=== PATIENT | female | born 1960 | race Caucasian/White ===

== ENCOUNTER 2024-04-06 10:27 | Inpatient (IN) | payer MEDICARE, OTHER ==
[~2024-04-06] VITALS: Ht 162.6 cm; Wt 67.3 kg
[2024-04-06 10:56] LABS: BASOPHILS % (AUTO) 0.7 % (0.0-2.0); EOSINOPHILS % (AUTO) 0.8 % (1.0-6.0); HEMATOCRIT 48.1 % (36-46); HEMOGLOBIN 16.5 g/dL (12.0-16.0); LYMPHOCYTES % (AUTO) 33.2 % (22.0-44.0); MEAN CORPUSCULAR HEMOGLOBIN 32.5 pg (26.0-34.0); MEAN CORPUSCULAR HGB CONC 34.3 G/dL (31.0-37.0); MEAN CORPUSCULAR VOLUME 95 fL (80-100); MONOCYTES # (AUTO) 0.8 K/uL (0.1-1.0); MONOCYTES % (AUTO) 9.3 % (2.0-9.0); PLATELET COUNT (AUTO) 257 K/uL (150-450); RED BLOOD CELL COUNT(AUTO) 5.08 MIL/uL (4.00-5.20); RED CELL DISTRIBUTION WIDTH 12.9 % (11.5-14.5); WHITE BLOOD COUNT (AUTO) 8.9 K/uL (4.5-11.0)
[2024-04-06 11:02] LABS: CALCIUM, TOTAL 9.7 mg/dL (8.8-10.5); CREATININE 0.95 mg/dL (0.60-1.30)
[2024-04-06 11:08] LABS: POTASSIUM 2.9 mmol/L (3.5-5.1)
[2024-04-06] MEDS: POTASSIUM CHLORIDE 20 MEQ ER TABLET PO ONE (11:53)
[2024-04-06] MEDS: POTASSIUM CHLORIDE 10% 40 MEQ/30 ML LIQUID UDCUP PO ONE ×2 (12:56→13:01)
[2024-04-06] MEDS: POTASSIUM CHL 10 MEQ/WATER 50 ML IV ONE (14:30)
[2024-04-06] MEDS: LORazepam 2 MG/ML VIAL IVP ONE (14:30)
[2024-04-06] MEDS ORDERED: MAGNESIUM SULFATE 2 GM/WATER 50 ML IV PRN (15:45)
[2024-04-06] MEDS ORDERED: MAGNESIUM HYDROXIDE SUSPENSION 30 ML UDCUP PO PRN (15:45)
[2024-04-06] MEDS ORDERED: HYDROCODONE/ACETAMINOPHEN 5-325 MG TABLET PO PRN (15:45)
[2024-04-06] MEDS ORDERED: MAGNESIUM OXIDE 400 MG TABLET PO PRN (15:45)
[2024-04-06] MEDS ORDERED: BISACODYL 10 MG RECTAL RECTAL SUPPOSITORY PR PRN (15:45)
[2024-04-06] MEDS ORDERED: ACETAMINOPHEN 325 MG TABLET PO PRN (15:45)
[2024-04-06] MEDS ORDERED: MORPHINE SULFATE 2 MG/ML SYRINGE IVP PRN (15:45)
[2024-04-06] MEDS ORDERED: MAGNESIUM SULFATE 4 GM/WATER 100 ML IV PRN (15:45)
[2024-04-06 16:39] LABS: ALBUMIN 3.8 g/dL (3.4-5.0)
[2024-04-06] MEDS: SODIUM CHLORIDE 0.9% 1,000 ML IV ONE (17:12)
[2024-04-06] MEDS: HEPARIN SODIUM,PORCINE 5,000 UNITS/ML VIAL SQ SCH (17:12)
[2024-04-06] MEDS ORDERED: SODIUM CHLORIDE 0.9% 250 ML IV ONE (17:29)
[2024-04-06] MEDS: POTASSIUM CHL 10 MEQ/WATER 50 ML IV PRN (17:35)
[2024-04-06 18:03] VITALS: PULSE 130; RESP 18
[2024-04-06 19:50] VITALS: BP 135/82; PULSE 99; RESP 18; TEMP 98
[2024-04-06] MEDS: DOCUSATE SODIUM 100 MG CAPSULE PO SCH (20:34)
[2024-04-06 23:42] VITALS: BP 153/95; PULSE 110; RESP 18; TEMP 98.4
[2024-04-07 04:21] VITALS: BP 146/85; PULSE 95; RESP 18; TEMP 98.1
[2024-04-07 06:12] LABS: BASOPHILS % (AUTO) 0.6 % (0.0-2.0); EOSINOPHILS % (AUTO) 0.6 % (1.0-6.0); HEMATOCRIT 43.7 % (36-46); HEMOGLOBIN 15.1 g/dL (12.0-16.0); LYMPHOCYTES # (AUTO) 2.3 K/uL (1.0-4.8); LYMPHOCYTES % (AUTO) 34.8 % (22.0-44.0); MEAN CORPUSCULAR HEMOGLOBIN 32.5 pg (26.0-34.0); MEAN CORPUSCULAR HGB CONC 34.5 G/dL (31.0-37.0); MEAN CORPUSCULAR VOLUME 94 fL (80-100); MONOCYTES # (AUTO) 0.5 K/uL (0.1-1.0); MONOCYTES % (AUTO) 7.9 % (2.0-9.0); NEUTROPHILS # (AUTO) 3.7 K/uL (1.8-7.7); NEUTROPHILS % (AUTO) 56.1 % (40.0-70.0); PLATELET COUNT (AUTO) 223 K/uL (150-450); RED BLOOD CELL COUNT(AUTO) 4.63 MIL/uL (4.00-5.20); WHITE BLOOD COUNT (AUTO) 6.6 K/uL (4.5-11.0)
[2024-04-07 06:19] LABS: ANION GAP 9 mmol/L (8-16); CALCIUM, TOTAL 9.1 mg/dL (8.8-10.5); CARBON DIOXIDE 25 mmol/L (22-29); CHLORIDE 109 mmol/L (98-107); CREATININE 0.78 mg/dL (0.60-1.30); GLOMERULAR FILTR. RATE CALC > 60 mL/min (>60); GLUCOSE,RANDOM 106 mg/dL (70-110); POTASSIUM 3.3 mmol/L (3.5-5.1); SODIUM SERUM 143 mmol/L (136-145); UREA NITROGEN, BLOOD 28 mg/dL (7-18)
[2024-04-07] MEDS: PANTOPRAZOLE SODIUM 40 MG DR TABLET PO SCH (08:00)
[2024-04-07 08:34] VITALS: BP 143/103; PULSE 94; RESP 18; TEMP 98.2
[2024-04-07] MEDS: POTASSIUM CHLORIDE 20 MEQ ER TABLET PO PRN (08:57)
[2024-04-07 13:03] LABS: APPEARANCE,URINE CLEAR (CLEAR); BILIRUBIN,URINE NEGATIVE (NEGATIVE); COLOR,URINE LIGHT YELLOW (YELLOW); GLUCOSE, URINE (UA) NEGATIVE (NEGATIVE); KETONES,URINE NEGATIVE (NEGATIVE); LEUKOCYTE ESTERASE ,URINE NEGATIVE (NEGATIVE); NITRATE,URINE NEGATIVE (NEGATIVE); OCCULT BLOOD,URINE NEGATIVE (NEGATIVE); PH,URINE 6.5 (5.0-8.0); PH,URINE DRUG SCREEN 6.5 (5.0-8.0); PROTEIN,URINE NEGATIVE (NEGATIVE); SPECIFIC GRAVITIY, URINE 1.025 (1.003-1.030); UROBILINOGEN,URINE <=1.0 mg/dL (<=1.0)
[2024-04-07 13:08] LABS: ALCOHOL, URINE DRUG SCREEN NEGATIVE (NEGATIVE); AMPHET/METH SCREEN,URINE NEGATIVE (NEGATIVE); BARBITURATE SCREEN, URINE NEGATIVE (NEGATIVE); BENZODIAZEPINES SCREEN,URINE NEGATIVE (NEGATIVE); CANNABINOID SCREEN,URINE POSITIVE (NEGATIVE); COCAINE SCREEN,URINE NEGATIVE (NEGATIVE); METHADONE SCREEN, URINE NEGATIVE (NEGATIVE); OPIATE SCREEN,URINE NEGATIVE (NEGATIVE); PHENCYCLIDINE SCREEN,URINE NEGATIVE (NEGATIVE)
[2024-04-07 16:00] VITALS: PULSE 87; RESP 18
[2024-04-07 19:50] VITALS: BP 134/96; PULSE 101; RESP 18; TEMP 98.4
[2024-04-08 00:10] VITALS: BP 141/97; PULSE 101; RESP 19; TEMP 98.4
[2024-04-08] MEDS: ONDANSETRON HCL 4 MG/2 ML VIAL IVP PRN (01:05)
[2024-04-08 05:18] VITALS: BP 139/81; PULSE 99; RESP 16; TEMP 98.1
[2024-04-08 07:13] LABS: BASOPHILS % (AUTO) 0.4 % (0.0-2.0); EOSINOPHILS % (AUTO) 0.5 % (1.0-6.0); HEMATOCRIT 43.9 % (36-46); HEMOGLOBIN 15.2 g/dL (12.0-16.0); LYMPHOCYTES # (AUTO) 2.4 K/uL (1.0-4.8); LYMPHOCYTES % (AUTO) 34.5 % (22.0-44.0); MEAN CORPUSCULAR HEMOGLOBIN 32.5 pg (26.0-34.0); MEAN CORPUSCULAR HGB CONC 34.7 G/dL (31.0-37.0); MEAN CORPUSCULAR VOLUME 94 fL (80-100); MONOCYTES # (AUTO) 0.5 K/uL (0.1-1.0); MONOCYTES % (AUTO) 7.2 % (2.0-9.0); NEUTROPHILS % (AUTO) 57.4 % (40.0-70.0); PLATELET COUNT (AUTO) 218 K/uL (150-450); RED BLOOD CELL COUNT(AUTO) 4.69 MIL/uL (4.00-5.20); RED CELL DISTRIBUTION WIDTH 12.9 % (11.5-14.5)
[2024-04-08 07:23] LABS: ANION GAP 12 mmol/L (8-16); CALCIUM, TOTAL 9.2 mg/dL (8.8-10.5); CARBON DIOXIDE 24 mmol/L (22-29); CHLORIDE 105 mmol/L (98-107); CREATININE 0.71 mg/dL (0.60-1.30); GLOMERULAR FILTR. RATE CALC > 60 mL/min (>60); GLUCOSE,RANDOM 87 mg/dL (70-110); POTASSIUM 3.3 mmol/L (3.5-5.1); SODIUM SERUM 141 mmol/L (136-145); UREA NITROGEN, BLOOD 17 mg/dL (7-18)
[2024-04-08 08:01] VITALS: BP 134/85; PULSE 97; RESP 18; TEMP 98.2
[2024-04-08 12:27] VITALS: BP 143/98; PULSE 91; RESP 18; TEMP 97.7
[2024-04-08 15:32] VITALS: BP 137/106; PULSE 119; RESP 20; TEMP 98
[2024-04-08 20:34] VITALS: BP 141/92; PULSE 103; RESP 20; TEMP 98
[2024-04-09 00:33] VITALS: BP 141/54; PULSE 114; RESP 20; TEMP 98.5
[2024-04-09 04:41] VITALS: BP 131/95; PULSE 111; RESP 18; TEMP 98.1
[2024-04-09 06:47] LABS: BASOPHILS % (AUTO) 0.5 % (0.0-2.0); EOSINOPHILS % (AUTO) 0.4 % (1.0-6.0); HEMATOCRIT 45.9 % (36-46); LYMPHOCYTES # (AUTO) 2.3 K/uL (1.0-4.8); LYMPHOCYTES % (AUTO) 33.2 % (22.0-44.0); MEAN CORPUSCULAR HEMOGLOBIN 32.5 pg (26.0-34.0); MEAN CORPUSCULAR HGB CONC 34.9 G/dL (31.0-37.0); MEAN CORPUSCULAR VOLUME 93 fL (80-100); MONOCYTES # (AUTO) 0.6 K/uL (0.1-1.0); MONOCYTES % (AUTO) 8.8 % (2.0-9.0); NEUTROPHILS # (AUTO) 3.9 K/uL (1.8-7.7); NEUTROPHILS % (AUTO) 57.1 % (40.0-70.0); PLATELET COUNT (AUTO) 228 K/uL (150-450); RED BLOOD CELL COUNT(AUTO) 4.93 MIL/uL (4.00-5.20); RED CELL DISTRIBUTION WIDTH 12.6 % (11.5-14.5); WHITE BLOOD COUNT (AUTO) 6.8 K/uL (4.5-11.0)
[2024-04-09 06:57] LABS: ANION GAP 12 mmol/L (8-16); CALCIUM, TOTAL 9.7 mg/dL (8.8-10.5); CARBON DIOXIDE 25 mmol/L (22-29); CHLORIDE 102 mmol/L (98-107); CREATININE 0.69 mg/dL (0.60-1.30); GLOMERULAR FILTR. RATE CALC > 60 mL/min (>60); GLUCOSE,RANDOM 92 mg/dL (70-110); POTASSIUM 3.5 mmol/L (3.5-5.1); SODIUM SERUM 139 mmol/L (136-145); UREA NITROGEN, BLOOD 17 mg/dL (7-18)
[2024-04-09 08:27] VITALS: BP 136/77; PULSE 96; RESP 19; TEMP 98.1
[2024-04-09 11:38] VITALS: BP 137/76; PULSE 84; RESP 20; TEMP 98
[2024-04-09 18:31] VITALS: BP 164/71; PULSE 94; RESP 20; TEMP 98.1
[2024-04-09 19:30] VITALS: BP 134/89; PULSE 102; RESP 20; TEMP 98
[2024-04-10 03:47] VITALS: BP 130/82; PULSE 103; RESP 18; TEMP 98.2
[2024-04-10] MEDS: ZOLPIDEM TARTRATE 5 MG TABLET PO PRN (04:28)
[2024-04-10 08:20] VITALS: BP 106/75; PULSE 105; RESP 18; TEMP 97.8
[2024-04-10 16:13] VITALS: BP 127/71; PULSE 85; RESP 18; TEMP 98.1
[2024-04-10 20:15] VITALS: BP 123/79; PULSE 104; RESP 18; TEMP 98.8
[2024-04-11 05:24] VITALS: BP 127/81; PULSE 114; RESP 18; TEMP 98.1
[2024-04-11 08:32] VITALS: BP 137/83; PULSE 99; RESP 18; TEMP 98
[2024-04-11 16:06] VITALS: BP 127/83; PULSE 98; RESP 17; TEMP 98.3
[2024-04-11 19:30] VITALS: BP 130/76; PULSE 108; RESP 20; TEMP 97.9
[2024-04-12 04:20] VITALS: BP 127/81; PULSE 102; RESP 18; TEMP 98.4
[2024-04-12 07:12] VITALS: BP 126/78; PULSE 98; RESP 18; TEMP 98.2
[2024-04-12 15:39] VITALS: BP 131/80; PULSE 99; RESP 20; TEMP 98
[2024-04-12 17:11] LABS: COVID AG,FIA SOURCE NASAL SWAB
[2024-04-12 17:27] LABS: SARS-COV2 (COVID) ANTIGEN,FIA Negative (Negative)
[2024-04-12 19:26] VITALS: BP 128/73; PULSE 100; RESP 18; TEMP 98.9
== END 2024-04-12 22:45 | DRG 641 ==
LOC: EMS 10:27 → 5S 16:27 → 6N 04-09 12:46
PROVIDERS: ADMIT Internal Medicine; ATTEND Internal Medicine
DX: E87.6 Hypokalemia (principal); F33.2 Major depressive disorder, recurrent severe without psychotic features; Z59.00 Homelessness unspecified; D75.1 Secondary polycythemia; R73.9 Hyperglycemia, unspecified; Z20.822 Contact with and (suspected) exposure to COVID-19
CPT/HCPCS: 80048; 80307; 81003; 82040; 83735; 84132; 85025; 93005; 99285; G0378; J1644; J2060; J2405; J3480; J7030; J7050

== ENCOUNTER 2024-04-08 18:25 | Inpatient (IN) | payer MEDICARE, MEDICAID ==
[~2024-04-08] VITALS: Ht 167.6 cm; Wt 62.5 kg
[2024-04-12] MEDS ORDERED: HALOPERIDOL 5 MG TABLET PO PRN (18:00)
[2024-04-12 23:00] VITALS: BP 159/80; PULSE 120; RESP 18; TEMP 98.8
[2024-04-13] MEDS: ZOLPIDEM TARTRATE 10 MG TABLET PO PRN (00:11)
[2024-04-13] MEDS: LORazepam 2 MG TABLET PO PRN (00:11)
[2024-04-13 07:08] LABS: BASOPHILS % (AUTO) 0.3 % (0.0-2.0); EOSINOPHILS % (AUTO) 0.2 % (1.0-6.0); HEMATOCRIT 50.9 % (36-46); HEMOGLOBIN 17.5 g/dL (12.0-16.0); LYMPHOCYTES # (AUTO) 3.8 K/uL (1.0-4.8); LYMPHOCYTES % (AUTO) 42.4 % (22.0-44.0); MEAN CORPUSCULAR HEMOGLOBIN 32.2 pg (26.0-34.0); MEAN CORPUSCULAR HGB CONC 34.3 G/dL (31.0-37.0); MEAN CORPUSCULAR VOLUME 94 fL (80-100); MONOCYTES # (AUTO) 0.7 K/uL (0.1-1.0); MONOCYTES % (AUTO) 7.9 % (2.0-9.0); NEUTROPHILS # (AUTO) 4.5 K/uL (1.8-7.7); NEUTROPHILS % (AUTO) 49.2 % (40.0-70.0); PLATELET COUNT (AUTO) 274 K/uL (150-450); RED BLOOD CELL COUNT(AUTO) 5.43 MIL/uL (4.00-5.20)
[2024-04-13 07:25] LABS: ALBUMIN 3.8 g/dL (3.4-5.0); POTASSIUM 3.7 mmol/L (3.5-5.1); TOTAL PROTEIN, SERUM 7.4 g/dL (6.4-8.2)
[2024-04-13 07:40] LABS: BILIRUBIN,TOTAL 0.6 mg/dL (0.1-1.0)
[2024-04-13 08:30] VITALS: BP 162/89; PULSE 104; RESP 18; TEMP 97
[2024-04-13] MEDS ORDERED: ONDANSETRON HCL 4 MG TABLET PO PRN (10:00)
[2024-04-13] MEDS ORDERED: DOCUSATE SODIUM 100 MG CAPSULE PO PRN (10:00)
[2024-04-13] MEDS ORDERED: IBUPROFEN 400 MG TABLET PO PRN (10:00)
[2024-04-13] MEDS ORDERED: MAGNESIUM HYDROXIDE SUSPENSION 30 ML UDCUP PO PRN (10:00)
[2024-04-13] MEDS ORDERED: ACETAMINOPHEN 325 MG TABLET PO PRN (10:00)
[2024-04-13] MEDS ORDERED: PETROLATUM,WHITE 28 GM JELLY TP PRN (10:00)
[2024-04-13] MEDS ORDERED: MAG HYDROX/ALUMINUM HYD/SIMETH ES 30 ML SUSPENSION UDCUP PO PRN (10:00)
[2024-04-13] MEDS ORDERED: ALBUTEROL SULFATE HFA 90 MCG/PUFF 8 GM INHALER IH PRN (10:00)
[2024-04-13] MEDS ORDERED: NICOTINE 14 MG/24 HOUR PATCH TD PRN (10:00)
[2024-04-13] MEDS ORDERED: GuaiFENesin/D-METHORPHAN [SUGAR-FREE] 200-20MG/10 ML SYRUP UDCUP PO PRN (10:00)
[2024-04-13] MEDS ORDERED: CloNIDine HCL 0.1 MG TABLET PO PRN (10:00)
[2024-04-13] MEDS ORDERED: LOPERAMIDE HCL 2 MG CAPSULE PO PRN (10:00)
[2024-04-13 20:14] VITALS: BP 119/69; PULSE 100; RESP 18; TEMP 98.4
[2024-04-14] MEDS: BuPROPion HCL XL 150 MG ER TABLET PO SCH (08:26)
[2024-04-14 09:21] LABS: HEMOGLOBIN A1C 5.6 % (3.8-5.6)
[2024-04-14 09:38] VITALS: BP 132/78; PULSE 78; RESP 17; TEMP 97.6
[2024-04-14 09:55] LABS: CHOL/HDL RATIO 5.4 (3.9-5.7); THYROID STIMULATING HORMONE 1.42 uIU/mL (0.36-3.74)
[2024-04-14 14:55] LABS: APPEARANCE,URINE CLEAR (CLEAR); BILIRUBIN,URINE NEGATIVE (NEGATIVE); COLOR,URINE YELLOW (YELLOW); GLUCOSE, URINE (UA) TRACE mg/dL (NEGATIVE); LEUKOCYTE ESTERASE ,URINE NEGATIVE (NEGATIVE); NITRATE,URINE NEGATIVE (NEGATIVE); OCCULT BLOOD,URINE NEGATIVE (NEGATIVE); PROTEIN,URINE TRACE mg/dL (NEGATIVE); SPECIFIC GRAVITIY, URINE 1.031 (1.003-1.030); UROBILINOGEN,URINE <=1.0 mg/dL (<=1.0)
[2024-04-14 15:02] LABS: ALCOHOL, URINE DRUG SCREEN NEGATIVE (NEGATIVE); AMPHET/METH SCREEN,URINE NEGATIVE (NEGATIVE); BARBITURATE SCREEN, URINE NEGATIVE (NEGATIVE); BENZODIAZEPINES SCREEN,URINE NEGATIVE (NEGATIVE); CANNABINOID SCREEN,URINE POSITIVE (NEGATIVE); COCAINE SCREEN,URINE NEGATIVE (NEGATIVE); METHADONE SCREEN, URINE NEGATIVE (NEGATIVE); OPIATE SCREEN,URINE NEGATIVE (NEGATIVE); PHENCYCLIDINE SCREEN,URINE NEGATIVE (NEGATIVE)
[2024-04-14 20:24] VITALS: BP 126/80; PULSE 126; RESP 18; TEMP 98.3
[2024-04-15 09:08] VITALS: BP 115/71; PULSE 95; RESP 18; TEMP 98.4
[2024-04-15 20:47] VITALS: BP 111/80; PULSE 104; RESP 18; TEMP 98.5
[2024-04-16 09:17] VITALS: BP 122/70; PULSE 97; RESP 17; TEMP 97.6
[2024-04-16 22:19] VITALS: BP 124/74; PULSE 97; RESP 18; TEMP 99
[2024-04-17 10:46] VITALS: BP 136/80; PULSE 103; RESP 18; TEMP 98.7
[2024-04-17 21:19] VITALS: BP 137/82; PULSE 96; RESP 18; TEMP 97.6
[2024-04-18 09:54] VITALS: BP 132/80; PULSE 91; RESP 16; TEMP 98.1
[2024-04-18 23:12] VITALS: BP 146/81; PULSE 95; RESP 18; TEMP 97.3
[2024-04-19 07:58] LABS: BASOPHILS % (AUTO) 0.5 % (0.0-2.0); EOSINOPHILS % (AUTO) 0.6 % (1.0-6.0); HEMATOCRIT 45.5 % (36-46); HEMOGLOBIN 15.6 g/dL (12.0-16.0); LYMPHOCYTES # (AUTO) 2.5 K/uL (1.0-4.8); MEAN CORPUSCULAR HEMOGLOBIN 31.9 pg (26.0-34.0); MEAN CORPUSCULAR HGB CONC 34.4 G/dL (31.0-37.0); MEAN CORPUSCULAR VOLUME 93 fL (80-100); MONOCYTES # (AUTO) 0.7 K/uL (0.1-1.0); MONOCYTES % (AUTO) 9.4 % (2.0-9.0); NEUTROPHILS % (AUTO) 55.5 % (40.0-70.0); PLATELET COUNT (AUTO) 246 K/uL (150-450); RED CELL DISTRIBUTION WIDTH 12.8 % (11.5-14.5); WHITE BLOOD COUNT (AUTO) 7.2 K/uL (4.5-11.0)
[2024-04-19 18:12] VITALS: BP 144/86; PULSE 100; RESP 18; TEMP 98
[2024-04-19 21:40] VITALS: BP 140/80; PULSE 100; RESP 18; TEMP 97.8
[2024-04-20 09:15] VITALS: BP 130/75; PULSE 65; RESP 17; TEMP 96.7
[2024-04-20 21:30] VITALS: BP 144/82; PULSE 101; RESP 18; TEMP 97.2
[2024-04-21 11:01] VITALS: BP 112/64; PULSE 88; RESP 16; TEMP 98.1
[2024-04-21 21:19] VITALS: BP 152/78; PULSE 91; RESP 18; TEMP 97.7
[2024-04-22 12:50] VITALS: BP 113/78; PULSE 97; RESP 18; TEMP 97.2
[2024-04-22 21:50] VITALS: BP 113/66; PULSE 96; RESP 18; TEMP 97.4
[2024-04-23 08:49] VITALS: BP 115/64; PULSE 90; RESP 18; TEMP 98
[2024-04-23 20:45] VITALS: BP 131/76; PULSE 99; RESP 18; TEMP 97.8
[2024-04-24 08:55] VITALS: BP 120/70; PULSE 94; RESP 18; TEMP 97.9
[2024-04-24 20:37] VITALS: BP 135/81; PULSE 94; RESP 18; TEMP 97.8
[2024-04-25 14:16] VITALS: BP 141/91; PULSE 121; RESP 20; TEMP 97.8
[2024-04-25 20:54] VITALS: BP 139/79; PULSE 105; RESP 19; TEMP 98.9
[2024-04-26 09:35] VITALS: BP 127/84; PULSE 56; RESP 17; TEMP 98.1
[2024-04-26 20:48] VITALS: BP 147/72; PULSE 100; RESP 18; TEMP 98.1
[2024-04-27 08:58] VITALS: BP 129/70; PULSE 93; RESP 18; TEMP 97.8
[2024-04-27] MEDS: BuPROPion HCL XL 150 MG ER TABLET PO SCH (09:00)
[2024-04-27 21:14] VITALS: BP 121/76; PULSE 82; RESP 18; TEMP 96.1
[2024-04-28 09:20] VITALS: BP 131/99; PULSE 98; RESP 18; TEMP 97.7
[2024-04-28 22:24] VITALS: BP 140/82; PULSE 98; RESP 18; TEMP 97.1
[2024-04-29] MEDS: VENLAFAXINE HCL 75 MG ER CAPSULE PO SCH (11:45)
[2024-04-29 16:26] VITALS: BP 138/78; PULSE 89; RESP 16; TEMP 97.2
[2024-04-29 22:45] VITALS: BP 126/87; PULSE 99; RESP 18; TEMP 97.7
[2024-04-30 08:22] LABS: ALANINE AMINOTRANSFERASE 28 U/L (12-78); ALBUMIN 3.4 g/dL (3.4-5.0); ALKALINE PHOSPHATASE 91 U/L (46-116); ASPARTATE AMINOTRANSFERASE 16 U/L (15-37); BILIRUBIN,TOTAL 0.7 mg/dL (0.1-1.0); CALCIUM, TOTAL 9.5 mg/dL (8.8-10.5); CARBON DIOXIDE 27 mmol/L (22-29); CREATININE 0.79 mg/dL (0.60-1.30); GLOMERULAR FILTR. RATE CALC > 60 mL/min (>60); GLUCOSE,RANDOM 76 mg/dL (70-110); TOTAL PROTEIN, SERUM 6.7 g/dL (6.4-8.2); UREA NITROGEN, BLOOD 33 mg/dL (7-18)
[2024-04-30 08:28] LABS: ANION GAP 12 mmol/L (8-16); CHLORIDE 104 mmol/L (98-107); POTASSIUM 3.3 mmol/L (3.5-5.1); SODIUM SERUM 143 mmol/L (136-145)
[2024-04-30] MEDS: MEGESTROL ACETATE 40 MG TABLET PO SCH (12:00)
[2024-04-30] MEDS: POTASSIUM CHLORIDE 20 MEQ ER TABLET PO ONE (12:34)
[2024-04-30 21:53] VITALS: BP 132/73; PULSE 95; TEMP 98
[2024-05-01 08:44] LABS: MAGNESIUM 2.4 mg/dL (1.80-2.40); PHOSPHORUS 3.5 mg/dL (2.5-4.9)
[2024-05-01 10:29] VITALS: BP 142/80; PULSE 88; RESP 18; TEMP 97.7
[2024-05-01 20:48] VITALS: BP 133/96; PULSE 94; RESP 19; TEMP 98.2
[2024-05-02 10:01] VITALS: BP 136/79; PULSE 82; RESP 17; TEMP 97.2
[2024-05-02 20:21] VITALS: BP 145/80; PULSE 93; RESP 18; TEMP 97.4
[2024-05-03 09:48] VITALS: BP 127/82; PULSE 77; RESP 18; TEMP 97.1
[2024-05-03 20:46] VITALS: BP 132/83; PULSE 88; RESP 19; TEMP 97.9
[2024-05-04 10:01] VITALS: BP 113/73; PULSE 95; RESP 18; TEMP 97.8
[2024-05-04 20:17] VITALS: BP 115/76; PULSE 84; RESP 18; TEMP 97.4
[2024-05-05] MEDS ORDERED: BUPR-514 PO ×2 (11:27→14:11)
[2024-05-05] MEDS ORDERED: VENL-67 PO ×2 (11:30→14:11)
[2024-05-05] MEDS ORDERED: MEGE40TA33 PO (11:31)
[2024-05-05 12:27] VITALS: BP 124/68; PULSE 131; RESP 18; TEMP 97.5
== END 2024-05-05 17:35 | disposition home or self-care (01) | DRG 885 ==
LOC: UNDOADMIN 04-12 22:45 → 3EX 04-12 22:45
PROVIDERS: ADMIT Psychiatry & Neurology Child & Adolescent Psychiatry; ATTEND Psychiatry & Neurology Child & Adolescent Psychiatry
PROC: GZ52ZZZ Individual Psychotherapy, Cognitive (ICD-10-PCS; principal; 2024-04-13)
PROC: GZHZZZZ Group Psychotherapy (ICD-10-PCS; 2024-04-23)
DX: F33.2 Major depressive disorder, recurrent severe without psychotic features (principal); R45.851 Suicidal ideations; Z59.00 Homelessness unspecified; D75.1 Secondary polycythemia; F10.10 Alcohol abuse, uncomplicated; F12.10 Cannabis abuse, uncomplicated; F41.9 Anxiety disorder, unspecified; Y90.9 Presence of alcohol in blood, level not specified
CPT/HCPCS: 70450; 80053; 80061; 80307; 83036; 83735; 84100; 84443; 85025; 87081; G0378